=== PATIENT | male | born 1985 | race Caucasian/White ===

== ENCOUNTER 2018-06-05 20:13 | Emergency (ER) | payer BC ==
--- NOTE | 2018-06-05 20:37 | EDM.PDOC ---
<Lisa Doherty E - Last Filed: 06/05/18 21:53> ED HPI GENERAL MEDICAL PROBLEM - General Stated Complaint: PT FAINTED Time Seen by Provider: 06/05/18 20:27 Source of Information: Reports: Patient History Limitations: Reports: No Limitations - History of Present Illness INITIAL COMMENTS - FREE TEXT/NARRATIVE: HISTORY AND PHYSICAL: History of present illness: Patient is a 32-year-old male who presents to the emergency room today with concerns of near-syncope. He states for the past day and a half he has began having a severe cough, headache, and body aches. He states that today he had an episode where he felt as if he were going to lose consciousness while sitting there watching TV but did not pass out. He states he is concerned because he has a family history of heart problems although he himself does not have heart problems and wanted to come make sure he was okay. Patient denies fever, chills, nausea, vomiting, change in stools, difficulties urinating, shortness of breath, difficulties breathing, palpitations, chest pain , or all other cardiovascular, respiratory, GI, or symptoms. She does not have any health history and does not take any medications. Review of systems: As per history of present illness and below otherwise all systems reviewed and negative. Past medical history: As per history of present illness and as reviewed below otherwise noncontributory. Surgical history: As per history of present illness and as reviewed below otherwise noncontributory. Social history: See social history for further information Family history: As per history of present illness and as reviewed below otherwise noncontributory. Physical exam: General: Patient is alert, oriented, and in no acute distress. He is tired appearing but is laying comfortably on exam table. HEENT: Atraumatic, normocephalic, pupils equal and reactive bilaterally, slight erythema of the conjunctiva, otherwise negative for scleral icterus, mucous membranes moist, TMs normal bilaterally, throat clear, neck supple, nontender, trachea midline. No drooling or trismus noted. No meningeal signs. No hot potato voice noted. Lungs: Clear to auscultation, breath sounds equal bilaterally, chest nontender. Heart: S1S2, regular rate and rhythm without overt murmur Abdomen: Soft, nondistended, nontender. Negative for masses or hepatosplenomegaly. Negative for costovertebral tenderness. Pelvis: Stable nontender. Genitourinary: Deferred. Rectal: Deferred. Skin: Intact, warm, dry. No lesions or rashes noted. Extremities: Atraumatic, negative for cords or calf pain. Neurovascular unremarkable. Neuro: Awake, alert, oriented. Cranial nerves II through XII unremarkable. Cerebellum unremarkable. Motor and sensory unremarkable throughout. Exam nonfocal. Notes: Lab work and results are still pending. Dr. Guerrier was consult did on this case and will follow up on these lab results. Diagnostics: CBC, CMP, EKG, troponin, influenza, head CT, chest x-ray, orthostatic vitals Therapeutics: Saline lock Prescription: None Impression: Near-syncope Plan: 1. Small frequent sips of fluids to prevent dehydration. [place] diet and advance as tolerated. 2. Tylenol and/or ibuprofen as needed for pain and fever management. 3. Please follow-up with your primary care provider in the next 1-2 days. Return to the ED as needed and as discussed. Definitive disposition and diagnosis as appropriate pending reevaluation and review of above. - Related Data Allergies Allergy/AdvReac Type Severity Reaction Status Date / Time No Known Allergies Allergy Verified 06/05/18 20:51 Home Meds: Home Meds Omeprazole 40 mg PO DAILY 06/05/18 [History] Course - Vital Signs Last Recorded V/S: Last Vital Signs Temp 36.1 C 06/05/18 20:49 Pulse 97 06/05/18 20:49 Resp 20 06/05/18 20:49 BP 142/85 H 06/05/18 20:49 Pulse Ox 97 06/05/18 20:49 Orthostatic Blood Pressure [ 114/72 Standing] Orthostatic Blood Pressure [ 122/79 Sitting] Orthostatic Blood Pressure [ 141/58 Supine] - Orders/Labs/Meds Orders: Active Orders 24 hr Category Date Time Status EKG Documentation Completion [RC] STAT Care 06/05/18 21:09 Active Orthostatic Vital Signs [RC] ASDIRECTED Care 06/05/18 21:09 Active Sodium Chloride 0.9% [Normal Saline] 1,000 ml Med 06/05/18 21:56 Active IV STAT Sodium Chloride 0.9% [Saline Flush] Med 06/05/18 21:14 Active 10 ml FLUSH ASDIRECTED PRN Sodium Chloride 0.9% [Saline Flush] Med 06/05/18 21:14 Active 2.5 ml FLUSH ASDIRECTED PRN Saline Lock Insert [OM.PC] Stat Oth 06/05/18 21:14 Ordered Medication Orders Sodium Chloride (Normal Saline) 1,000 mls @ 999 mls/hr IV STAT ONE Stop: 06/05/18 22:56 Sodium Chloride (Saline Flush) 10 ml FLUSH ASDIRECTED PRN PRN Reason: Keep Vein Open Sodium Chloride (Saline Flush) 2.5 ml FLUSH ASDIRECTED PRN PRN Reason: Keep Vein Open Labs: Laboratory Tests 06/05/18 06/05/18 Range/Units 21:37 21:37 WBC 8.87 (4.0-11.0) K/uL RBC 5.47 (4.50-5.90) M/uL Hgb 16.4 (13.0-17.0) g/dL Hct 47.4 (38.0-50.0) % MCV 86.7 (80.0-98.0) fL MCH 30.0 (27.0-32.0) pg MCHC 34.6 (31.0-37.0) g/dL RDW Std Deviation 43.0 (28.0-62.0) fl RDW Coeff of Conrad 14 (11.0-15.0) % Plt Count 202 (150-400) K/uL MPV 10.90 (7.40-12.00) fL Neut % (Auto) 60.2 (48.0-80.0) % Lymph % (Auto) 29.7 (16.0-40.0) % [place] % (Auto) 7.8 (0.0-15.0) % Eos % (Auto) 1.7 (0.0-7.0) % Baso % (Auto) 0.6 (0.0-1.5) % Neut # (Auto) 5.4 (1.4-5.7) K/uL Lymph # (Auto) 2.6 H (0.6-2.4) K/uL [place] # (Auto) 0.7 (0.0-0.8) K/uL Eos # (Auto) 0.2 (0.0-0.7) K/uL Baso # (Auto) 0.1 (0.0-0.1) K/uL Nucleated RBC % 0.0 /100WBC Nucleated RBCs # 0 K/uL Sodium 143 (136-148) mmol/L Potassium 4.5 (3.5-5.1) mmol/L Chloride 106 (98-107) mmol/L Carbon Dioxide 30.0 (21.0-32.0) mmol/L BUN 14 (7.0-18.0) mg/dL Creatinine 1.1 (0.8-1.3) mg/dL Est Cr Clr Drug Dosing 106.94 mL/min Estimated GFR (MDRD) > 60.0 ml/min Glucose 100 (74-106) mg/dL Calcium 9.5 (8.5-10.1) mg/dL Total Bilirubin 0.6 (0.2-1.0) mg/dL AST 40 H (15-37) IU/L ALT 92 H (14-63) IU/L Alkaline Phosphatase 85 (46-116) U/L Troponin I < 0.050 (0.000-0.056) ng/mL Total Protein 7.4 (6.4-8.2) g/dL Albumin 4.0 (3.4-5.0) g/dL Globulin 3.4 (2.6-4.0) g/dL Albumin/Globulin Ratio 1.2 (0.9-1.6) Meds: Medications Generic Name Dose Route Start Last Admin Trade Name Freq PRN Reason Stop Dose Admin Sodium Chloride 1,000 mls @ 999 mls/hr 06/05/18 21:56 Normal Saline IV 06/05/18 22:56 STAT ONE Sodium Chloride 10 ml 06/05/18 21:14 Saline Flush FLUSH ASDIRECTED PRN Keep Vein Open Sodium Chloride 2.5 ml 06/05/18 21:14 Saline Flush FLUSH ASDIRECTED PRN Keep Vein Open Discontinued Medications Generic Name Dose Route Start Last Admin Trade Name Freq PRN Reason Stop Dose Admin Ketorolac Tromethamine 30 mg 06/05/18 21:56 Toradol IVPUSH 06/05/18 21:57 ONETIME ONE Departure - Departure Disposition: Home, Self-Care 01 Clinical Impression: Near syncope, Orthostasis - Discharge Information Referrals: PCP,None [Primary Care Provider] - Additional Instructions: The following information is given to patients seen in the emergency department who are being discharged to home. This information is to outline your options for follow-up care. We provide all patients seen in our emergency department with a follow-up referral. The need for follow-up, as well as the timing and circumstances, are variable depending upon the specifics of your emergency department visit. If you don't have a primary care physician on staff, we will provide you with a referral. We always advise you to contact your personal physician following an emergency department visit to inform them of the circumstance of the visit and for follow-up with them and/or the need for any referrals to a consulting specialist. The emergency department will also refer you to a specialist when appropriate. This referral assures that you have the opportunity for followup care with a specialist. All of these measure are taken in an effort to provide you with optimal care, which includes your followup. Under all circumstances we always encourage you to contact your private physician who remains a resource for coordinating your care. When calling for followup care, please make the office aware that this follow-up is from your recent emergency room visit. If for any reason you are refused follow-up, please contact the [facility] emergency department at and ask to speak to the emergency department charge nurse. [facility]- [place] [address] Push hydration and rest and try to avoid caffeinated products. Please call and schedule a follow-up appointment in the clinic for further care and evaluation of today's events and care as indicated. Return to ER as needed and as discussed - My Orders Last 24 Hours: My Active Orders 06/05/18 21:56 Sodium Chloride 0.9% [Normal Saline] 1,000 ml IV STAT - Assessment/Plan Last 24 Hours: My Active Orders 06/05/18 21:56 Sodium Chloride 0.9% [Normal Saline] 1,000 ml IV STAT <Rosanna Guerrier - Last Filed: 06/05/18 22:27> ED HPI GENERAL MEDICAL PROBLEM - History of Present Illness INITIAL COMMENTS - FREE TEXT/NARRATIVE: This is Dr. Guerrier dictating addendum note as I admin endorse this case at 10 PM. I agree with history and physical as above and I will continue to follow up the workup as it is ordered. The patient's orthostatic vitals were positive with his systolic blood pressure going from 141 to 114 from supine to standing and his heart rate going from 70 to 95. I have ordered to give the patient some IV fluids and some Toradol for hydration and body aches and plan disposition with follow-up in the clinic for further evaluation and care as needed. Near-syncope with orthostasis ED ROS GENERAL - Review of Systems Review Of Systems: ROS reveals no pertinent complaints other than HPI. ED EXAM, GENERAL - Physical Exam Exam: See Below (See dictation) Departure - Departure Time of Disposition: 22:26 Condition: Good
[2018-06-05] MEDS ORDERED: Sodium Chloride 0.9% 10 ML Syringe FLUSH PRN (21:14)
[2018-06-05] MEDS ORDERED: Sodium Chloride 0.9% 2.5 ML Syringe FLUSH PRN (21:14)
[2018-06-05] MEDS ORDERED: Ketorolac 30 MG/ML SDV IVPUSH ONE (21:56)
[2018-06-05] MEDS ORDERED: Sodium Chloride 0.9% 1,000 ML IV ONE (21:56)
[2018-06-05 22:05] LABS: CHLORIDE,CL 106 mmol/L (98-107); SODIUM,NA 143 mmol/L (136-148)
--- NOTE | 2018-06-05 22:17 | CR ---
INDICATION: Near syncopal event TECHNIQUE: Chest 2 views. COMPARISON: None FINDINGS: Cardiovascular and mediastinum: Heart size and vasculature are normal in caliber and appearance. Mediastinum is within normal limits. Lungs and pleural spaces: Lungs are clear. No sign of infiltrate or mass. No sign of pleural effusion. No pneumothorax. Bones and soft tissues: No significant findings. IMPRESSION: No sign of acute disease. Dictated by Kasandra Kraft MD @ Jun 05 2018 10:16PM Signed by Dr. Kasandra Kraft @ Jun 05 2018 10:17PM
--- NOTE | 2018-06-05 22:17 | CT ---
INDICATION: Near syncopal event TECHNIQUE: Head CT without contrast. COMPARISON: None FINDINGS: CSF spaces: Within normal limits for age. Brain parenchyma: Normal mondragon-white junction no sign of mass, hemorrhage, or midline shift. Skull base and calvarium: The visualized paranasal sinuses and mastoid air cells demonstrate no acute or significant findings. The visualized orbits are grossly unremarkable. No skull fractures. IMPRESSION: No acute abnormality. Please note that all CT scans at this facility use dose modulation, iterative reconstruction, and/or weight-based dosing when appropriate to reduce radiation dose to as low as reasonably achievable. Dictated by Kasandra Kraft MD @ Jun 05 2018 10:16PM Signed by Dr. Kasandra Kraft @ Jun 05 2018 10:16PM
== END 2018-06-05 23:25 | disposition home or self-care (01) ==
LOC: MW.ED 20:13
DX: I95.1 Orthostatic hypotension (principal)
CPT/HCPCS: 36415; 70450; 71046; 80053; 84484; 85025; 87804; 93005; 96361; 96374; 99285; J1885; J7040

== ENCOUNTER 2023-08-05 10:25 | Emergency (ER) | payer BC, OTHER ==
[2023-08-05] MEDS: Benzonatate 100 MG Cap PO STA (10:42)
[2023-08-05] MEDS: Albuterol 0.083% 2.5 MG/3 ML Neb Soln NEB STA (10:43)
[2023-08-05] MEDS: Albuterol/Ipratropium 3.0-0.5 MG/3 ML Neb Soln NEB STA (10:44)
[2023-08-05 11:28] LABS: CORONAVIRUS COVID-19 NAA NEGATIVE (NEGATIVE); INFLUENZA A NAA NEGATIVE (NEGATIVE); INFLUENZA B NAA NEGATIVE (NEGATIVE)
== END 2023-08-05 12:56 | disposition home or self-care (01) ==
LOC: MW.ED 10:25
DX: R07.81 Pleurodynia (principal); J06.9 Acute upper respiratory infection, unspecified; Z75.8 Other problems related to medical facilities and other health care; Z88.5 Allergy status to narcotic agent; Z79.899 Other long term (current) drug therapy
CPT/HCPCS: 0240U; 71046; 99284; A9270; 99283; J7620-GY